=== PATIENT | female | born 1985 | race Caucasian/White ===

== ENCOUNTER → 2024-03-29 | Outpatient (CLI) | payer OTHER ==
[~2024-03-29] MED LIST: D3 S1CAP3 PO; MULTTAB20 PO; PROHANCE 279.3MG/ML 15ML VIAL ONE; THERTAB52 PO; VITA250T27 PO
== END ==
LOC: M PLAIMG 07:43
PROVIDERS: ATTEND Family Medicine
DX: R97.8 Other abnormal tumor markers (principal); K76.0 Fatty (change of) liver, not elsewhere classified; R16.1 Splenomegaly, not elsewhere classified
CPT/HCPCS: 74183; A9576

== ENCOUNTER → 2024-04-21 | Outpatient (CLI) | payer OTHER ==
[~2024-04-21] MED LIST changes: +AMIT10TA7; +GASTROGRAFIN SOLUTION 30ML As Ordered ONE; +ISOVUE-370 76% 100ML VIAL As Ordered ONE; -PROHANCE 279.3MG/ML 15ML VIAL ONE
== END ==
LOC: M RAD 07:47
PROVIDERS: ATTEND Internal Medicine Hematology & Oncology
DX: L29.89 Other pruritus (principal)
CPT/HCPCS: 74160; Q9963; Q9967